=== PATIENT | male | born 1980 | race Caucasian/White ===

== ENCOUNTER 2020-12-05 07:00 | Outpatient (CLI) | payer OTHER, BC ==
--- NOTE | 2020-12-05 10:25 | XRAY Report ---
PROCEDURE: Cervical Spine 2 View INDICATIONS: NECK AND BACK PAIN TECHNIQUE: 3 view(s) of the cervical spine were acquired. COMPARISON: 04/08/2014 FINDINGS: Bones: No acute fractures or dislocations to the T1 level. The lateral masses of C1 appear intact o n the odontoid view. No suspicious bony lesions. Straightening of cervical lordosis. Multilevel cer vical spondylitic changes are again noted. There are degenerative endplate changes, endplate osteophy te formation, and loss of disc space. Findings are most pronounced at C4-5 and C5-6. Soft tissues: No prevertebral soft tissue swelling. IMPRESSION: 1. Cervical spine without acute fracture. 2. Straightening of cervical lordosis likely related to positioning and/or concurrent muscle spasms. 3. Multilevel cervical spondylosis most pronounced at C4-5 and C5-6. Reviewed by: Nikhil Gimenez MD on 12/05/2020 9:23 AM JOSE Approved by: Nikhil Gimenez MD on 12/05/2020 9:23 AM JOSE Station ID: [id number]
--- NOTE | 2020-12-05 10:28 | XRAY Report ---
Retrolisthesis) Radiologist there is patient by name of the head and part of the thorax enthesophyte the images. Ther e is PROCEDURE: Thoracic Spine 3 View INDICATIONS: NECK AND BACK PAIN TECHNIQUE: 3 views of the thoracic spine were acquired. COMPARISON: None. FINDINGS: Bones: No acute fractures or dislocations. No suspicious bony lesions. 12 pairs of ribs are noted, and appear intact where visualized. No acute compression fractures of the thoracic spine. Gentle de xtrocurvature of the mid thoracic spine with gentle reciprocal levocurvature of the lower thoracic sp ine. Soft tissues: No paravertebral stripe thickening. IMPRESSION: Thoracic spine without acute radiographic abnormalities. Reviewed by: Nikhil Gimenez MD on 12/05/2020 9:27 AM JOSE Approved by: Nikhil Gimenez MD on 12/05/2020 9:27 AM JOSE Station ID: [id number]
== END 2020-12-05 23:59 | disposition home or self-care (01) ==
LOC: DI.S 07:00
PROVIDERS: ATTEND Physician Assistant Medical
DX: M54.2 Cervicalgia (principal); M47.812 Spondylosis without myelopathy or radiculopathy, cervical region

== ENCOUNTER 2021-07-18 08:00 | Outpatient (CLI) | payer OTHER, BC | END 2021-07-18 23:59 | LOC: LAB.S 08:00 | PROVIDERS: ATTEND Physician Assistant | DX: J06.9 Acute upper respiratory infection, unspecified (principal); Z20.822 Contact with and (suspected) exposure to COVID-19 ==

== ENCOUNTER 2023-07-31 17:17 | Outpatient (CLI) | payer SELFPAY | END 2023-07-31 17:18 | disposition critical access hospital (66) | LOC: EMS 17:17 | DX: R10.33 Periumbilical pain (principal); R11.0 Nausea; R10.819 Abdominal tenderness, unspecified site | CPT/HCPCS: A0425; A0427 ==

== ENCOUNTER 2023-07-31 17:54 | Emergency (ER) | payer BC, OTHER ==
[2023-07-31] MEDS ORDERED: KETOROLAC 15 MG/ML VIAL IVP STA (17:59)
[2023-07-31 18:07] VITALS: BP 117/81
--- NOTE | 2023-07-31 18:21 | ED Physician Documentation ---
PD HPI ABD PAIN - Stated complaint Stated Complaint: ABD PX - Chief complaint Chief Complaint: Abd Pain - History obtained from History obtained from: Patient, EMS - Additional information Additional information: 42-year-old gentleman otherwise healthy with no history of abdominal surgeries developed progressive periumbilical pain today that is now severe. He last moved his bowels 2 days ago but he says it is normal for him and only to poop a couple of times a week. PD PAST MEDICAL HISTORY - Past Medical History Past Medical History: Yes Cardiovascular: Other Respiratory: None Neuro: None Endocrine/Autoimmune: None GI: None : Other HEENT: None Psych: None Musculoskeletal: None Derm: None Other Past Medical History: testicular issues. utis - Past Surgical History Past Surgical History: Yes Cardiovascular: Other - Present Medications Home Medications: Ambulatory Orders Medication Instructions Recorded Confirmed Ibuprofen 600 mg PO TID #15 tablet 02/27/15 Oxycodone HCl/Acetaminophen 1 each PO Q6H PRN #20 tablet 02/27/15 [Percocet 5-325 mg Tablet] dexAMETHasone [Decadron] 4 mg PO DAILY #5 tablet 02/27/15 polyethylene glycoL 3350(BULK) 17 gm PO DAILY PRN #1 each 07/31/23 [Miralax] - Allergies Allergies/Adverse Reactions: Allergies Allergy/AdvReac Type Severity Reaction Status Date / Time No Known Drug Allergies Allergy Verified 02/27/15 18:31 - Social History Does the pt smoke?: Yes Smoking Status: Current every day smoker Does the pt drink ETOH?: Yes Does the pt have substance abuse?: No - Immunizations Immunizations are current?: Yes - POLST Patient has POLST: No PD ED PE NORMAL - Vitals Vital signs reviewed: Yes - General General: Alert and oriented X 3, Other (Uncomfortable) - Respiratory Respiratory: No respiratory distress, Clear bilaterally - Abdomen Abdomen: Normal bowel sounds, Soft, Other (Mild diffuse tenderness most marked in the right lower quadrant without surgical signs) - Neuro Neuro: Alert and oriented X 3, Normal speech Results - Vitals Vitals: Vital Signs - 24 hr 07/31/23 07/31/23 07/31/23 17:58 18:20 19:12 Temperature 36.4 C L Heart Rate 83 74 Respiratory 18 18 17 Rate Blood Pressure 117/81 H 117/81 H O2 Saturation 98 100 Oxygen O2 Source Room air - Labs Labs: Laboratory Tests 07/31/23 07/31/23 18:31 18:31 WBC 15.5 H RBC 5.23 Hgb 15.5 Hct 47.2 MCV 90.2 MCH 29.6 MCHC 32.8 RDW 12.4 Plt Count 345 MPV 9.9 Neut # (Auto) 12.2 H Lymph # (Auto) 1.9 Stephenson # (Auto) 1.1 H Eos # (Auto) 0.3 Baso # (Auto) 0.1 Absolute Nucleated RBC 0.00 Nucleated RBC % 0.0 Sodium 136 Potassium 4.2 Chloride 104 Carbon Dioxide 27 Anion Gap 5.0 L BUN 14 Creatinine 0.8 Estimated GFR (MDRD) 107 Glucose 108 H Calcium 9.3 Total Bilirubin 1.0 AST 16 ALT 19 Alkaline Phosphatase 59 Total Protein 7.1 Albumin 4.5 Globulin 2.6 Albumin/Globulin Ratio 1.7 PD Medical Decision Making - ED course ED course: 42-year-old gentleman presents with acute abdominal pain that does have some diffuse tenderness but most marked in the right lower quadrant. Workup in the emergency department does demonstrate nonspecific leukocytosis on CBC and unremarkable CMP. CT of the abdomen pelvis with IV contrast was done and not demonstrating any surgical emergency, but does have significant and impressive stool load. On repeat examination at 8:37 PM he is nontender and feeling much better after IV Toradol. Will clean him out but close return precautions recommended for recheck if not improving as expected. Departure - Departure Disposition: 01 Home, Self Care Clinical Impression: Abdominal pain Qualifiers: Abdominal location: generalized Qualified Code(s): R10.84 - Generalized abdominal pain Constipation Qualifiers: Constipation type: unspecified constipation type Qualified Code(s): K59.00 - Constipation, unspecified Condition: Good Record reviewed to determine appropriate education?: Yes Instructions: ED Constipation Prescriptions: polyethylene glycoL 3350(BULK) [Miralax] 17 gm PO DAILY PRN #1 each PRN Reason: Constipation Comments: You were seen today for abdominal pain and the CT was suggestive of severe constipation. I am prescribing a laxative and you received a first dose tonight. If you do not have significant and quick resolution of your pain after some good bowel movements, please return in 12 to 24 hours for recheck. Also given the change in your bowel movement habits over the last 9 months or so talk with your primary care physician about referral for colonoscopy. Forms: PCP List
[2023-07-31 18:35] VITALS: O2SAT 100
[2023-07-31 18:46] LABS: BASOPHILS # (AUTO) 0.1 10^3/uL (0.0-0.1); BASOPHILS % (AUTO) 0.3 %; EOSINOPHILS # (AUTO) 0.3 10^3/uL (0.0-0.7); EOSINOPHILS % (AUTO) 1.9 %; HCT - HEMATOCRIT 47.2 % (42.0-52.0); HGB - HEMOGLOBIN 15.5 g/dL (14.0-18.0); LYMPHOCYTES # (AUTO) 1.9 10^3/uL (1.5-3.5); MEAN CORPUSCULAR HEMOGLOBIN 29.6 pg (27.0-31.0); MEAN CORPUSCULAR HGB CONC 32.8 g/dL (32.0-36.0); MEAN CORPUSCULAR VOLUME 90.2 fL (80.0-94.0); MEAN PLATELET VOLUME 9.9 fL (7.4-11.4); MONOCYTES # (AUTO) 1.1 10^3/uL (0.0-1.0); NEUTROPHILS # (AUTO) 12.2 10^3/uL (1.5-6.6); NEUTROPHILS % (AUTO) 78.3 %; PLT - PLATELET COUNT 345 10^3/uL (130-450); RED BLOOD COUNT 5.23 10^6/uL (4.70-6.10); RED CELL DISTRIBUTION WIDTH 12.4 % (12.0-15.0); WHITE BLOOD COUNT 15.5 x10^3/uL (4.8-10.8)
[2023-07-31 18:53] LABS: ALBUMIN 4.5 g/dL (3.2-5.5); ALBUMIN/GLOBULIN RATIO 1.7 (1.0-2.2); CALCIUM 9.3 mg/dL (8.5-10.3); CREATININE 0.8 mg/dL (0.6-1.3); POTASSIUM 4.2 mmol/L (3.5-4.5); TOTAL PROTEIN 7.1 g/dL (6.4-8.9)
[2023-07-31] MEDS ORDERED: iohexoL-300 100 ML VIAL IVP ONE (19:46)
--- NOTE | 2023-07-31 20:12 | CT Report ---
PROCEDURE: ABDOMEN/PELVIS W INDICATIONS: RLQ pain, iv only CONTRAST: 100mL Omni 300 TECHNIQUE: After the administration of intravenous contrast, 5 mm thick sections acquired from the diaphragms to the symphysis. 5 mm thick coronal and sagittal reformats were acquired. For radiation dose reducti on, the following was used: automated exposure control, adjustment of mA and/or kV according to larry ent size. COMPARISON: None. FINDINGS: Image quality: Diagnostic. Lung bases and heart: Unremarkable. Liver: Hepatic steatosis. Gallbladder and biliary tree: No radiopaque stones or wall thickening. No biliary dilation. Spleen: No splenomegaly. Pancreas: No pancreatic ductal dilation. Adrenals: No adrenal nodule. Kidneys and ureters: No hydronephrosis. No renal cystic lesion which requires follow up. No solid mas s. Bowel and peritoneum: No bowel distension. No pathologic free fluid. Moderate amount of fecal materia l seen in the descending colon and transverse colon. The appendix is not definitively visualized.; Ho wever, no secondary findings for acute inflammation identified in the right lower quadrant. Lymph nodes: No central or retroperitoneal adenopathy. Vessels: No infrarenal aortic aneurysm. PELVIS Reproductive organs: Unremarkable. Bladder: No abnormal wall thickening, accounting for underdistension. Pelvic lymph nodes: No pelvic adenopathy by size criteria. Bones: No aggressive osseous abnormality. Other: No significant ventral or inguinal hernia. IMPRESSION: CT abdomen and pelvis without acute abnormality. No findings identified to explain patient's right lo wer quadrant abdominal pain. Incidental note of moderate fecal burden seen throughout the descending colon and transverse colon. The appendix is not definitively visualized; however, no secondary findin gs for acute inflammation identified in the right lower quadrant. Mild hepatic steatosis. Reviewed by: Nikhil Tabor MD on 07/31/2023 8:11 PM PST Approved by: Nikhil Tabor MD on 07/31/2023 8:11 PM PST Station ID: [id number]
[2023-07-31] MEDS ORDERED: polyethylene glycoL 3350 17 GM PACKET PO STA (20:36)
== END 2023-07-31 21:00 | disposition home or self-care (01) ==
LOC: ED 17:54
DX: K59.00 Constipation, unspecified (principal); R10.84 Generalized abdominal pain; F17.200 Nicotine dependence, unspecified, uncomplicated; Z79.899 Other long term (current) drug therapy
CPT/HCPCS: 36415; 74177; 80053; 85025; 96374; 99284; A9270; Q9967; 83605; 87040